=== PATIENT | female | born 1980 | race Caucasian/White ===

== ENCOUNTER → 2019-11-16 08:44 | Outpatient (CLI) | payer OTHER, SELFPAY ==
[2019-11-16 10:49] LABS: TSH w/ Reflex to FT4 3.06 uIU/mL (0.47-4.68)
[2019-11-16 13:05] LABS: Alanine Aminotransferase 13 IU/L (<35); Albumin 4.3 g/dL (3.5-5.0); Albumin Globulin Ratio 1.6 (1.0-2.8); Alkaline Phosphatase 57 U/L (38-126); Aspartate Aminotransferase 23 IU/L (14-36); BUN Creatinine Ratio 18.8 (6-22); Bilirubin Total 0.9 mg/dL (0.2-1.3); Blood Urea Nitrogen 13 mg/dL (7-17); Calcium 9.3 mg/dL (8.4-10.2); Carbon Dioxide 25 mmol/L (22-32); Chloride 106 mmol/L (98-107); Estimated Glomerular Filt Rate > 60.0 mL/min (>60); Globulin 2.7 g/dL (1.7-4.1); Glucose 92 mg/dL (70-100); HEMOLYSIS < 15 (0-50); Potassium 4.2 mmol/L (3.4-5.1); Sodium 137 mmol/L (137-145)
== END ==
PROVIDERS: PCP Registered Nurse; Referring Provider Registered Nurse; Visit Provider Registered Nurse
DX: E03.9 Hypothyroidism, unspecified (principal)
CPT/HCPCS: 36415; 80053; 84443

== ENCOUNTER → 2020-05-02 09:10 | Outpatient (CLI) | payer OTHER, SELFPAY ==
[2020-05-02 10:30] LABS: Add Manual Diff / Slide Review NO; Basophils Absolute Auto 0 /uL (0-100); Basophils Percent Auto 0.3 % (0-2); Eosinophils Absolute Auto 0 /uL (0-450); Eosinophils Percent Auto 0.7 % (2-4); Hematocrit 38.7 % (36-46); Lymphocytes Absolute Auto 2000 /uL (1100-4500); Lymphocytes Percent Auto 38.1 % (25-40); Mean Corpuscular HGB Conc 33.6 % (30-36); Mean Corpuscular Hemoglobin 30.8 PG (26-34); Mean Corpuscular Volume 91.8 fL (80-100); Monocytes Absolute Auto 500 /uL (0-900); Monocytes Percent Auto 9.1 % (3-14); Neutrophils Absolute Auto 2700 /uL (1500-7000); Neutrophils Percent Auto 51.8 % (50-75); Platelet Count 168 X10^3/uL (150-400); Red Blood Cell Count 4.21 X10^6/uL (4.0-5.2); Red Cell Distribution Width 12.9 % (11.6-14.8); White Blood Cell Count 5.2 X10^3/uL (4.5-11.0)
[2020-05-02 10:45] LABS: Cholesterol 158 mg/dL (140-199); HDL Cholesterol 67 mg/dL (40-60); LDL Cholesterol Calculated 80 mg/dL (<100); Triglycerides 55 mg/dL (35-150)
[2020-05-02 11:18] LABS: Free T4, Direct Thyroxine 1.37 ng/dL (0.78-2.19)
[2020-05-02 11:32] LABS: Thyroid Stimulating Hormone 3.14 uIU/mL (0.47-4.68)
== END ==
PROVIDERS: PCP Registered Nurse; Referring Provider Registered Nurse; Visit Provider Registered Nurse
DX: E03.9 Hypothyroidism, unspecified (principal); R53.83 Other fatigue; Z97.5 Presence of (intrauterine) contraceptive device; Z13.220 Encounter for screening for lipoid disorders
CPT/HCPCS: 36415; 80061; 84439; 84443; 85025

== ENCOUNTER → 2020-05-07 17:15 | Outpatient (CLI) | payer OTHER, SELFPAY ==
--- NOTE | 2020-05-07 | DI.MG.S_ITS ---
BILATERAL DIGITAL SCREENING MAMMOGRAM 3D/2D WITH CAD WITH AUGMENTATION: 05/07/2020 CLINICAL: Routine screening. No prior exams were available for comparison. The tissue of both breasts is extremely dense, which lowers the sensitivity of mammography. Current study was also evaluated with a Computer Aided Detection (CAD) system. There is an oval equal density focal asymmetry with an obscured and circumscribed margin in the left breast at 1 o'clock posterior depth. No other significant masses, calcifications, or other findings are seen in either breast. IMPRESSION: INCOMPLETE: NEEDS ADDITIONAL IMAGING EVALUATION The oval equal density focal asymmetry in the left breast is indeterminate. Mediolateral and spot compression views as well as additional views with possible ultrasound are recommended. This exam was interpreted at Station ID: [id number]. NOTE: For mammograms, a report in lay terms will be sent to the patient. Approximately 15% of breast malignancies will not be visualized mammographically. In the management of a palpable breast mass, a negative mammogram must not discourage biopsy of a clinically suspicious lesion. Electronically Signed By: Zac swain/rob:05/08/2020 07:50:19 letter sent: Additional Imaging Needed ACR BI-RADS Category 0: Incomplete 3340F
== END ==
PROVIDERS: PCP Registered Nurse; Referring Provider Registered Nurse; Visit Provider Registered Nurse
DX: Z12.31 Encounter for screening mammogram for malignant neoplasm of breast (principal)
CPT/HCPCS: 77063; 77067

== ENCOUNTER → 2020-05-09 13:42 | Outpatient (CLI) | payer OTHER, SELFPAY ==
[2020-05-09] MEDS: COVID-19 VACC #1, MRNA(MOD) 100 MCG/0.5 ML VIAL IM (13:47)
== END ==
PROVIDERS: PCP Registered Nurse; Visit Provider Internal Medicine
DX: Z23 Encounter for immunization (principal)
CPT/HCPCS: 0011A; 91301

== ENCOUNTER → 2020-05-30 14:53 | Outpatient (CLI) | payer OTHER, SELFPAY ==
--- NOTE | 2020-05-30 | DI.MG.S_ITS ---
UNILATERAL LEFT DIGITAL DIAGNOSTIC MAMMOGRAM 3D/2D WITH ADDITIONAL VIEWS: 05/30/2020 CLINICAL: Additional evaluation requested from prior study. Comparison is made to exam dated: 05/07/2020 mammogram - [facility]. The tissue of left breast is extremely dense, which lowers the sensitivity of mammography. There is a 1.5 cm oval equal density focal asymmetry with an obscured and circumscribed margin in the left breast at 1 o'clock posterior depth. This correlates as palpated. No other significant masses or calcifications are seen in the breast. Left breast implant. IMPRESSION: INCOMPLETE: NEEDS ADDITIONAL IMAGING EVALUATION Left breast: The 1.5 cm oval equal density focal asymmetry in the left breast is indeterminate. A targeted ultrasound is recommended and will immediately follow. Patient reports prior biopsy at this site in [place]. No records available. Right breast: A second palpable abnormality is reported in the right breast 7:00 region posterior depth. Spot mammography images could not be preformed of this region due to far posterior location and breast implant. Patient also reports pain in the right axilla. A targeted ultrasound is recommended and will immediately follow. This exam was interpreted at Station ID: [id number]. NOTE: For mammograms, a report in lay terms will be sent to the patient. Approximately 15% of breast malignancies will not be visualized mammographically. In the management of a palpable breast mass, a negative mammogram must not discourage biopsy of a clinically suspicious lesion. Electronically Signed By: Beau Carranza M.D. slc/:05/30/2020 17:15:23 ACR BI-RADS Category 0: Incomplete 3340F
--- NOTE | 2020-05-30 14:54 | DI.US.S_ITS ---
LIMITED ULTRASOUND OF LEFT BREAST AND AXILLA: 05/30/2020 CLINICAL: Additional evaluation requested from prior study. Abnormal left breast mammo done prior. Comparison is made to exams dated: 05/30/2020 mammogram and 05/07/2020 mammogram - [facility]. Color flow and real-time ultrasound of the left breast 1 o'clock, and axilla regions were performed. Mejia scale images of the real-time examination were reviewed. Left breast implant. There is a 1.8 cm x 1.6 cm x 1.4 cm oval mass with a circumscribed and microlobulated margin in the left breast at 1 o'clock posterior depth 6 cm from the nipple. This oval mass is hypoechoic with a well-defined boundary and posterior acoustic enhancement. This correlates as palpated and with mammography findings. Color flow imaging demonstrates that there is an adjacent vascularity. No significant abnormalities were seen sonographically in the left axilla. IMPRESSION: PROBABLY BENIGN The 1.8 cm oval mass in the left breast resembles a fibroadenoma and is probably benign. A follow-up ultrasound in 6 months is recommended to demonstrate stability. Exam findings were conveyed to the patient. Patient is advised to monitor for significant change. Clinical follow-up as needed. This exam was interpreted at Station ID: [id number]. Electronically Signed By: Beau Carranza M.D. [facility]:05/30/2020 17:19:18 letter sent: Followup Recommended Ultrasound BI-RADS: 3 Probably benign
--- NOTE | 2020-05-30 14:54 | DI.US.S_ITS ---
LIMITED ULTRASOUND OF RIGHT BREAST AND AXILLA: 05/30/2020 CLINICAL: Palpable right breast lump. [facility]time ultrasound of the right breast 7-8 o'clock, and axilla regions was performed. Mejia scale images of the real-time examination were reviewed. No significant abnormalities were seen sonographically in the right breast or the right axilla. Right breast implant. IMPRESSION: NEGATIVE There is no sonographic evidence of malignancy at the palpable abnormality or in the axilla in the region of pain. A 1 year screening mammogram is recommended. Exam findings were conveyed to the patient. Patient is advised to monitor for significant change. Clinical follow-up as needed. This exam was interpreted at Station ID: [id number]. Electronically Signed By: Beau Carranza M.D. slc/:05/30/2020 17:14:06 letter sent: Normal Exam Ultrasound BI-RADS: 1 Negative
== END ==
PROVIDERS: PCP Registered Nurse; Referring Provider Registered Nurse; Visit Provider Registered Nurse
DX: R92.2 Inconclusive mammogram (principal); N63.21 Unspecified lump in the left breast, upper outer quadrant; N63.31 Unspecified lump in axillary tail of the right breast; N64.4 Mastodynia; Z98.82 Breast implant status
CPT/HCPCS: 76642; 77065; G0279

== ENCOUNTER → 2020-06-06 14:27 | Outpatient (CLI) | payer OTHER, SELFPAY ==
[2020-06-06] MEDS: COVID-19 VACC #2, MRNA(MOD) 100 MCG/0.5 ML VIAL IM (14:33)
== END ==
PROVIDERS: PCP Registered Nurse; Visit Provider Internal Medicine
DX: Z23 Encounter for immunization (principal)
CPT/HCPCS: 0012A; 91301

== ENCOUNTER → 2021-01-01 13:30 | Outpatient (CLI) | payer OTHER, SELFPAY ==
--- NOTE | 2021-01-01 13:38 | DI.US.S_ITS ---
LIMITED ULTRASOUND OF LEFT BREAST: 01/01/2021 CLINICAL: 6 month follow up and palpable left breast lump. Comparison is made to exams dated: 05/30/2020 ultrasound, 05/30/2020 mammogram, and 05/07/2020 mammogram - [facility]. Color flow and real-time ultrasound of the left breast 12-1 o'clock region were performed. Mejia scale images of the real-time examination were reviewed. There is a benign 1.8 cm x 1.6 cm x 1.4 cm oval mass with a circumscribed and microlobulated margin in the left breast at 1 o'clock posterior depth 6 cm from the nipple. This oval mass is hypoechoic with a well-defined boundary and posterior acoustic enhancement. This correlates as palpated and with mammography findings. Color flow imaging demonstrates that there is an adjacent vascularity. IMPRESSION: BENIGN There is no sonographic evidence of malignancy. The 1.8 cm x 1.6 cm x 1.4 cm oval mass in the left breast resembles a fibroadenoma and is benign. Return to annual mammogram screening schedule is recommended. This exam was interpreted at Station ID: [id number]. Electronically Signed By: Tod Hobbs M.D., jr/rob:01/01/2021 15:25:48 letter sent: Normal Exam Ultrasound BI-RADS: 2 Benign
== END ==
PROVIDERS: PCP Registered Nurse; Referring Provider Registered Nurse; Visit Provider Registered Nurse
DX: N63.20 Unspecified lump in the left breast, unspecified quadrant (principal)
CPT/HCPCS: 76642

== ENCOUNTER → 2021-02-18 10:04 | Outpatient (CLI) | payer OTHER, SELFPAY | PROVIDERS: PCP Family Medicine; Visit Provider Obstetrics & Gynecology | DX: R31.9 Hematuria, unspecified (principal) | CPT/HCPCS: 87077; 87086; 87186 ==

== ENCOUNTER → 2021-04-24 09:11 | Outpatient (CLI) | payer OTHER, SELFPAY ==
[2021-04-24 10:39] LABS: Alanine Aminotransferase 20 IU/L (<35); Albumin 4.6 g/dL (3.5-5.0); Albumin Globulin Ratio 1.5 (1.0-2.8); Alkaline Phosphatase 57 U/L (38-126); Aspartate Aminotransferase 26 IU/L (14-36); BUN Creatinine Ratio 21.5 (6-22); Bilirubin Total 1.1 mg/dL (0.2-1.3); Blood Urea Nitrogen 14 mg/dL (7-17); Calcium 9.5 mg/dL (8.4-10.2); Carbon Dioxide 25 mmol/L (22-32); Chloride 106 mmol/L (98-107); Cholesterol 174 mg/dL (140-199); Estimated Glomerular Filt Rate > 60.0 mL/min (>60); Globulin 3.1 g/dL (1.7-4.1); Glucose 91 mg/dL (70-100); HDL Cholesterol 71 mg/dL (40-60); HEMOLYSIS < 15 (0-50); LDL Cholesterol Calculated 93 mg/dL (<100); Sodium 140 mmol/L (137-145); Total Protein 7.7 g/dL (6.3-8.2); Triglycerides 50 mg/dL (35-150)
[2021-04-24 10:45] LABS: Hemoglobin A1C% w Est Avg Glu 5.3 % (4.0-6.0)
[2021-04-24 11:10] LABS: TSH w/ Reflex to FT4 2.28 uIU/mL (0.47-4.68)
== END ==
PROVIDERS: PCP Family Medicine; Referring Provider Family Medicine; Visit Provider Family Medicine
DX: D24.2 Benign neoplasm of left breast (principal); E03.9 Hypothyroidism, unspecified; R73.9 Hyperglycemia, unspecified; R92.2 Inconclusive mammogram; Z98.82 Breast implant status
CPT/HCPCS: 36415; 80053; 80061; 83036; 84443

== ENCOUNTER → 2021-05-11 12:40 | Outpatient (CLI) | payer OTHER, SELFPAY ==
--- NOTE | 2021-05-11 12:41 | DI.MRI.S_ITS ---
BREAST MRI OF BOTH BREASTS- WITH AUGMENTATION: 05/11/2021 CLINICAL: Inconclusive Mammogram. TECHNIQUE: The patient was placed prone in a dedicated breast imaging coil. Precontrast axial STIR and 3D FLASH without fat saturation sequences were obtained. Both before and after bolus injection of contrast, sequential 1-minute axial 3D FLASH with fat saturation sequences for 3 time points, with subtraction images and maximum intensity projections (MIP's) generated. Delayed sagittal FLASH images with fat saturation were also obtained. Computer-aided detection, including computer algorithm analysis of MRI image data for lesion detection and characterization, pharmacokinetic analysis, with further physician review for interpretation, was performed. COMPARISON: [facility], , MM SCREENING MAMMO IMPLANT BI, 05/07/2020, 18:02. [facility], MM SPECIAL VIEW LT, 05/30/2020, 15:15. [facility], , US BREAST LT LIMITED, 05/30/2020, 16:04. [facility], US BREAST LT LIMITED, 01/01/2021, 14:21. [facility], US BREAST RT LIMITED, 05/30/2020, 16:11. Image quality: Diagnostic. There is moderate background parenchymal enhancement. There is extremely dense fibroglandular tissue in the bilateral breast. Right breast: Retroglandular silicone breast implant is in place. Implant appears intact. There is a solitary dilated duct in the subareolar right breast containing intrinsic T1 hyperintensity material prior to contrast administration. This is consistent with hemorrhagic/proteinaceous material. There is however, minimal enhancement involving the joseph of the duct noted on the postcontrast images. No definite intraluminal enhancing mass lesions. Otherwise, no other suspicious mass, non-mass enhancement, or architectural distortion. No skin abnormality seen. No axillary or internal mammary chain adenopathy. Left breast: Retroglandular silicone breast implant is in place. Implant appears intact. There is an oval enhancing mass identified in the upper outer quadrant of the left breast at approximately the 1 o'clock position posterior depth measuring approximately 1.7 x 1.5 x 1.3 cm. This closely approximates sonographic measurements of 1.8 x 1.6 x 1.4 cm. This demonstrates delayed phase progressive enhancement kinetics. This mass is T2 hyperintense. No other suspicious mass, non-mass enhancement, or architectural distortion identified in the left breast. No skin or nipple abnormalities. No axillary or internal mammary chain adenopathy. Miscellaneous: Visualized portions of the upper abdomen and chest appear unremarkable. IMPRESSION: INCOMPLETE: NEEDS ADDITIONAL IMAGING EVALUATION 1. Redemonstration of previously described oval, circumscribed mass in the upper, outer quadrant of the left breast measuring 1.7 x 1.5 x 1.3 cm. It demonstrates MRI findings compatible with a fibroadenoma. This closely approximates size and appearance seen on comparison sonographic evaluation. Consider follow up ultrasound in one year to document extermination inspector stability given patient's elevated lifetime risk for breast cancer. 2. There is a solitary dilated/ectatic duct measuring approximately 4-5 mm in diameter in the subareolar right breast with mild enhancement of the ductal wall. No evidence for intraluminal filling defects or intraluminal enhancing masses. No adjacent enhancing mass lesion seen. Recommend further evaluation with right breast ultrasound. Additionally, recommend correlating with any clinical history for suspicious right nipple discharge. 3. Patient is also due for bilateral mammograms which can be performed when she returns for her right breast ultrasound. COMMENT: The imaging literature indicates that a negative contrast breast MRI examination has a high sensitivity and a moderate specificity for detecting and excluding invasive carcinomas to a detection threshold of 3-5 mm; nonetheless, appropriate clinical and mammographic follow-up are recommended. MRI is not sensitive for detecting DCIS (ductal carcinoma in situ) and may not detect large invasive neoplasms that show only minimal enhancement such as mucinous carcinoma. If there are suspicious calcifications or clinically worrisome palpable masses, then biopsy should still be considered. Invasive neoplasms can be hidden by co-existent and benign enhancement caused by mastitis, hormone therapy effects, radiation therapy, , and recent biopsy or surgery. False positive examinations can occur in a number of circumstances, including breasts that have recently been subject to invasive procedures and those that contain atypical ductal hyperplasia, hormonally stimulated glandular tissue, fat necrosis, or radial scars. This exam was interpreted at Station ID: [id number]. Electronically Signed By: Erlin Kulkarni M.D. aty/:05/13/2021 18:04:26 ACR BI-RADS Category 0: Incomplete 3340F
== END ==
PROVIDERS: PCP Family Medicine; Referring Provider Family Medicine; Visit Provider Family Medicine
DX: R92.8 Other abnormal and inconclusive findings on diagnostic imaging of breast (principal); D24.2 Benign neoplasm of left breast; N60.41 Mammary duct ectasia of right breast; Z98.82 Breast implant status
CPT/HCPCS: 77049; A9579

== ENCOUNTER → 2021-07-02 13:29 | Outpatient (CLI) | payer OTHER, SELFPAY ==
--- NOTE | 2021-07-02 | DI.MG.S_ITS ---
BILATERAL DIGITAL DIAGNOSTIC MAMMOGRAM 3D/2D SHORT-TERM FOLLOW-UP WITH AUGMENTATION: 07/02/2021 CLINICAL: Short term follow up of the right breast, due for bilateral imaging. Comparison is made to exams dated: 05/11/2021 breast MRI, 05/30/2020 mammogram, 05/07/2020 mammogram, 01/01/2021 ultrasound, 05/30/2020 ultrasound, and 05/30/2020 ultrasound - [facility]. The tissue of both breasts is extremely dense, which lowers the sensitivity of mammography. There are multiple dilated ducts in the right breast central to the nipple in the retroareolar region. These correlate with breast MRI findings. There is a 1.5 cm oval equal density focal asymmetry with an obscured and circumscribed margin in the left breast at 1 o'clock posterior depth. This correlates as palpated and with breast MRI findings. No other significant masses or calcifications are seen in either breast. IMPRESSION: INCOMPLETE: NEEDS ADDITIONAL IMAGING EVALUATION The multiple dilated ducts in the right breast central to the nipple in the retroareolar region are indeterminate. An ultrasound is recommended. The 1.5 cm oval equal density focal asymmetry in the left breast at 1 o'clock posterior depth most likely is a fibroadenoma and is probably benign. This exam was interpreted at Station ID: [id number]. NOTE: For mammograms, a report in lay terms will be sent to the patient. Approximately 15% of breast malignancies will not be visualized mammographically. In the management of a palpable breast mass, a negative mammogram must not discourage biopsy of a clinically suspicious lesion. Electronically Signed By: Eh berry/rob:07/02/2021 15:04:39 ACR BI-RADS Category 0: Incomplete 3340F
--- NOTE | 2021-07-02 14:14 | DI.US.S_ITS ---
LIMITED ULTRASOUND OF RIGHT BREAST: 07/02/2021 CLINICAL: Patient returns for sonographic evaluation of right retroareolar area seen on MRI. Comparison is made to exams dated: 07/02/2021 mammogram, 05/11/2021 breast MRI, 05/30/2020 ultrasound, 05/07/2020 mammogram, 01/01/2021 ultrasound, and 05/30/2020 mammogram - [facility]. Color flow ultrasound of the right breast 11-12 o'clock, and retroareolar regions was performed. Mejia scale images of the real-time examination were reviewed. There are multiple dilated ducts in the right breast superior lateral quadrant in the retroareolar region. These dilated ducts are of mixed echogenicity with internal echoes. These correlate with mammography and breast MRI findings. Calcifications are seen within the duct with associated twinkle artifact on color Doppler. No internal vascularity is seen within the ducts. There appears to be mild wall thickening without a focal mass visualized. IMPRESSION: PROBABLY BENIGN The multiple dilated ducts in the right breast have a differential diagnosis of duct ectasia with debris or less likely papilloma and are probably benign. A follow-up right ultrasound in 6 months is recommended to demonstrate stability. Follow-up left breast ultrasound is also recommended in one year for follow up of the probable left breast fibroadenoma as recommended on the MRI breast exam from 05/11/2021. This exam was interpreted at Station ID: [id number]. Electronically Signed By: Eh Bar M.D. ar/:07/02/2021 15:15:29 letter sent: Followup Recommended Ultrasound BI-RADS: 3 Probably benign
== END ==
PROVIDERS: PCP Family Medicine; Referring Provider Family Medicine; Visit Provider Family Medicine
DX: R92.8 Other abnormal and inconclusive findings on diagnostic imaging of breast (principal); D24.2 Benign neoplasm of left breast
CPT/HCPCS: 76642; 77066; G0279

== ENCOUNTER → 2021-07-15 09:41 | Outpatient (CLI) | payer OTHER, SELFPAY ==
--- NOTE | 2021-07-15 09:43 | DI.US.S_ITS ---
LIMITED ULTRASOUND OF LEFT BREAST AND AXILLA: 07/15/2021 CLINICAL: Follow up left fibroadenoma. Comparison is made to exams dated: 07/02/2021 mammogram, 05/11/2021 breast MRI, 01/01/2021 ultrasound, 05/30/2020 ultrasound, 05/30/2020 mammogram, and 05/07/2020 mammogram - [facility]. Color flow and real-time ultrasound of the left breast axilla were performed. Mejia scale images of the real-time examination were reviewed. There is a stable 1.8 cm x 1.7 cm x 1.2 cm oval mass with a circumscribed margin in the left breast at 1 o'clock posterior depth 6 cm from the nipple. This oval mass is hypoechoic with a well-defined boundary and posterior acoustic enhancement. This correlates as palpated, with mammography, and breast MRI findings. Color flow imaging demonstrates that there is an adjacent vascularity. There also is a stable 1.3 cm x 1.1 cm x 0.3 cm oval mass with a circumscribed margin in the left breast at 5 o'clock middle depth 3 cm from the nipple. This oval mass is hypoechoic. This was not seen on the prior mammogram and MRI. Color flow imaging demonstrates that there is no vascularity present. No significant abnormalities were seen sonographically in the left axilla. IMPRESSION: PROBABLY BENIGN Stable 1.8 cm x 1.7 cm x 1.2 cm oval mass in the left breast at 1 o'clock posterior depth is most consistent with a fibroadenoma and is probably benign. Stable 1.3 cm x 1.1 cm x 0.3 cm oval mass in the left breast at 5 o'clock middle depth resembles a fibroadenoma and is probably benign. A follow-up ultrasound in 6 months is recommended to demonstrate stability. Patient will also be due for right breast ultrasound at that time. Exam findings were conveyed to the patient. Patient is advised to monitor for significant change. Clinical follow-up as needed. This exam was interpreted at Station ID: [id number]. Electronically Signed By: Beau Carranza M.D. slc/:07/15/2021 11:35:06 letter sent: Followup Recommended Ultrasound BI-RADS: 3 Probably benign
== END ==
PROVIDERS: PCP Family Medicine; Referring Provider Surgery; Visit Provider Surgery
DX: R92.2 Inconclusive mammogram (principal); N63.23 Unspecified lump in the left breast, lower outer quadrant; N63.21 Unspecified lump in the left breast, upper outer quadrant
CPT/HCPCS: 76642

== ENCOUNTER → 2021-08-11 14:25 | Outpatient (CLI) | payer OTHER, SELFPAY ==
--- NOTE | 2021-08-11 14:27 | DI.CT.S_ITS ---
PROCEDURE: CT SINUS SCREEN WO CON INDICATIONS: Chronic pansinusitis TECHNIQUE: Noncontrast 3.0 mm axial images acquired from the frontal sinuses to the mid-sella, with coronal and sagittal reformats. For radiation dose reduction, the following was used: automated exposure control, adjustment of mA and/or kV according to patient size. COMPARISON: None. FINDINGS: Image quality: Excellent. Maxillary Sinuses: No bony remodeling or destruction. Sinuses are clear. Ethmoid Air Cells: No bony remodeling or destruction. Sinuses are clear. Sphenoid Sinuses: No bony remodeling or destruction. Sinuses are clear. Frontal Sinuses: No bony remodeling or destruction. Sinuses are clear. Ostiomeatal Complexes: Ostiomeatal complexes are patent, yet they are constitutionally narrowed. No Brady cells. Miscellaneous: Visualized intra-orbital contents are normal. No hitesh bullosa or paradoxical turbinate curvature. There is mild to moderate rightward nasal septal deviation. Incidental note is made of hyperostosis frontalis. This is not considered to be pathologic in a woman of this age. Areas of calcification can be seen involving the subcutaneous fat of the cheeks. IMPRESSION: No significant active paranasal sinus disease is seen. [id number] rightward nasal septal deviation. Constitutionally narrowed ostiomeatal complexes. Dictated by: Mamadou Srivastava M.D. on 08/11/2021 at 13:42 Approved by: Mamadou Srivastava M.D. on 08/11/2021 at 13:43
== END ==
PROVIDERS: PCP Family Medicine; Referring Provider Otolaryngology; Visit Provider Otolaryngology
DX: J32.4 Chronic pansinusitis (principal); J34.89 Other specified disorders of nose and nasal sinuses; R51.9 Headache, unspecified; J34.2 Deviated nasal septum
CPT/HCPCS: 70486

== ENCOUNTER → 2021-12-24 09:34 | Outpatient (CLI) | payer OTHER, SELFPAY ==
--- NOTE | 2021-12-24 09:35 | DI.US.S_ITS ---
ULTRASOUND OF LEFT BREAST: 12/24/2021 CLINICAL: Patient returns for a 6 month follow up of the left breast. Comparison is made to exams dated: 07/15/2021 ultrasound, 07/02/2021 mammogram, 05/11/2021 breast MRI, 01/01/2021 ultrasound, 05/30/2020 ultrasound, and 05/30/2020 mammogram - [facility]. Color flow and real-time ultrasound of the left breast were performed. Mejia scale images of the real-time examination were reviewed. There is a stable 1.9 cm x 1.2 cm x 2.1 cm oval mass with a circumscribed margin in the left breast at 1 o'clock posterior depth 6 cm from the nipple. This oval mass is hypoechoic with a well-defined boundary and posterior acoustic enhancement. There also is a stable 1.3 cm x 1.1 cm x 0.3 cm oval mass with a circumscribed margin in the left breast at 5 o'clock middle depth 3 cm from the nipple. This oval mass is hypoechoic. IMPRESSION: PROBABLY BENIGN The stable 1.9 cm x 1.2 cm x 2.1 cm oval mass in the left breast at 1 o'clock posterior depth is consistent with a fibroadenoma and is probably benign. A follow-up ultrasound in 6 months is recommended. The stable 1.3 cm x 1.1 cm x 0.3 cm oval mass in the left breast at 5 o'clock middle depth resembles a fibroadenoma and is probably benign. A follow-up ultrasound in 6 months is recommended. The patient stated, through the motorsports technician that the larger fibroadenoma in the 12:00 position fibroadenoma will be removed by a surgeon. This exam was interpreted at Station ID: [id number]. Electronically Signed By: Gil Interiano acr/:12/24/2021 11:42:01 letter sent: Followup Recommended Ultrasound BI-RADS: 3 Probably benign
--- NOTE | 2021-12-24 09:35 | DI.US.S_ITS ---
PROCEDURE: US BREAST RT LIMITED COMPARISON: [facility], , US BREAST RT LIMITED, 07/02/2021, 14:20. INDICATIONS: The multiple dilated ducts in the right breast FINDINGS: IMPRESSION: . Echoes. There is no change compared to prior. The patient stated, through the ct scan special procedures technologist, that she will be seeing a surgery to have this area removed. Dictated by: Gil Interiano M.D. on 12/24/2021 at 10:57 Approved by: Gil Interiano M.D. on 12/24/2021 at 11:38
--- NOTE | 2021-12-24 10:13 | DI.US.S_ITS ---
Procedure: US breast RT limited ULTRASOUND OF RIGHT BREAST: 12/24/2021 CLINICAL: Patient returns for a 6 month follow up of the right breast. Comparison is made to exams dated: 07/02/2021 ultrasound, 07/02/2021 mammogram, 05/11/2021 breast MRI, 05/30/2020 ultrasound, and 05/07/2020 mammogram - [facility]. Color flow ultrasound of the right breast was performed. Mejia scale images of the real-time examination were reviewed. There are multiple dilated ducts in the right breast superior lateral quadrant in the retroareolar region. These dilated ducts are of mixed echogenicity with internal echoes. There is no change compared to prior. Internal vascularity is seen within the ducts. There appears to be mild wall thickening without a focal mass visualized. IMPRESSION: PROBABLY BENIGN The multiple dilated ducts in the right breast have a differential diagnosis of duct ectasia, debris, or a papilloma and are probably benign. A follow-up ultrasound in 6 months is recommended. The patient stated, through the testing and regulating technician, that she will be seeing a surgery to have this area removed. This exam was interpreted at Station ID: [id number]. Electronically Signed By: Gil Interiano acr/:12/24/2021 11:37:43 Entry: aa - 12/24/2021 14:20:40 Continued Report - Page 2 of 2 Patient Name: RM AN date: 1980 Sex: F Attending Physician: Zaire Indications: Date: 12/24/2021 10:24 At the request of: ARNULFO LOPEZ Procedure: US breast RT limited Ultrasound BI-RADS: 3 Probably benign
== END ==
PROVIDERS: PCP Family Medicine; Referring Provider Surgery; Visit Provider Surgery
DX: D24.2 Benign neoplasm of left breast (principal); R92.2 Inconclusive mammogram
CPT/HCPCS: 76642

== ENCOUNTER → 2022-05-06 09:11 | Outpatient (CLI) | payer OTHER, SELFPAY ==
--- NOTE | 2022-05-06 09:13 | DI.US.S_ITS ---
PROCEDURE: US PELVIC COMPLETE INDICATIONS: PELVIC PAIN TECHNIQUE: Real-time scanning was performed of the pelvic organs, with image documentation. Additional endovaginal scanning was necessary due to incomplete visualization of the adnexal and endometrial structures by transabdominal scanning. COMPARISON: [facility], US, US ABDOMEN COMPLETE, 05/06/2022, 10:14. FINDINGS: Uterus: Uterus is anteverted and normal in size at 8.9 x 5 x 6.1 cm. The myometrium is homogeneous. The endometrial stripe does not appear thickened. The IUD is seen at its expected location. Fluid can be seen within the cervix. Ovaries: The right ovary measures 5.9 x 3.7 x 5.7 cm, with a calculated ovarian volume of 65 cc. The majority of the right ovary is comprised with a complicated cyst, with a heterogeneous appearance, with an area of a chocolate cyst. The left ovary measures 2.3 x 2.1 x 2.2 cm, with a calculated ovarian volume of 5.5 cc. Less than 12 follicles can be seen in each ovary. No adnexal masses are seen. Other: A small amount of free fluid can be seen adjacent to the right ovary. IMPRESSION: Abnormal right ovary, which may be related to a hemorrhagic cyst or endometrioma. - If it would be clinically appropriate, a followup pelvic ultrasound could be considered in 6 weeks to assure resolution/ improvement. The IUD is seen at its expected location. We strive to produce accurate, complete, and clear reports of imaging services. To assist us in improving patient care, this report was composed using standard report templates and voice recognition software. Therefore, it may contain abnormal punctuation, insertions and/or omissions. Occasional wrong-word or sound-alike substitutions may occur. Though we review the report and make efforts to correct it, we do recommend that the report be read carefully in proper context to recognize any text inaccuracies. Dictated by: Mamadou Srivastava M.D. on 05/06/2022 at 16:31 Approved by: Mamadou Srivastava M.D. on 05/06/2022 at 16:33
--- NOTE | 2022-05-06 09:13 | DI.US.S_ITS ---
PROCEDURE: US ABDOMEN COMPLETE INDICATIONS: RUQ pain and pelvic pain TECHNIQUE: Real-time scanning was performed of the abdominal and retroperitoneal organs, with image documentation. COMPARISON: [facility], US, US PELVIC COMPLETE, 05/06/2022, 10:31. FINDINGS: Liver: Liver is normal in size and homogeneous in echotexture. Gallbladder: No findings of gallstones or sludge are seen. The gallbladder wall is not thickened, measuring 3 mm or less. No specific pericholecystic fluid is seen. The sonographic Hancock sign is negative. Biliary ducts: Intrahepatic bile ducts are non-dilated. Extrahepatic bile duct caliber measures 3 mm. Normal is 6-7 mm or less in diameter, or 10 mm or less post-cholecystectomy. Pancreas: Visualized portions of the pancreas are sonographically normal. Spleen: Spleen is normal in size and homogeneous in echotexture. Kidneys: Kidneys are normal in size and echotexture. Right kidney measures 10.6 cm long; left kidney measures 10.4 cm long. The renal cortex measures within normal limits for thickness. No hydronephrosis or nephrolithiasis. No solid masses. Aorta: Visualized aorta is normal in caliber at less than 3 cm. Iliacs: Proximal common iliac arteries are normal in caliber at less than 2.5 cm. IVC: Intrahepatic inferior vena cava is patent. Miscellaneous: No free abdominal fluid. IMPRESSION: The gallbladder demonstrates a normal sonographic appearance. No biliary dilatation is seen. Dictated by: Mamadou Srivastava M.D. on 05/06/2022 at 16:28 Approved by: Mamadou Srivastava M.D. on 05/06/2022 at 16:29
[2022-05-06 09:56] LABS: Add Manual Diff / Slide Review NO; Basophils Absolute Auto 0 /uL (0-100); Basophils Percent Auto 0.5 % (0-2); Eosinophils Absolute Auto 100 /uL (0-450); Eosinophils Percent Auto 1.1 % (2-4); Hemoglobin 12.8 g/dL (12.0-16.0); Lymphocytes Absolute Auto 1600 /uL (1100-4500); Lymphocytes Percent Auto 31.3 % (25-40); Mean Corpuscular HGB Conc 33.8 % (30-36); Mean Corpuscular Volume 91.7 fL (80-100); Monocytes Absolute Auto 500 /uL (0-900); Monocytes Percent Auto 9.2 % (3-14); Neutrophils Absolute Auto 2900 /uL (1500-7000); Neutrophils Percent Auto 57.9 % (50-75); Platelet Count 169 X10^3/uL (150-400); Red Blood Cell Count 4.14 X10^6/uL (4.0-5.2); Red Cell Distribution Width 13.4 % (11.6-14.8); White Blood Cell Count 5.1 X10^3/uL (4.5-11.0)
[2022-05-06 10:24] LABS: Alanine Aminotransferase 18 IU/L (<35); Alkaline Phosphatase 54 U/L (38-126); Aspartate Aminotransferase 25 IU/L (14-36); BUN Creatinine Ratio 16.9 (6-22); Bilirubin Total 0.8 mg/dL (0.2-1.3); Blood Urea Nitrogen 10 mg/dL (7-17); Calcium 8.9 mg/dL (8.4-10.2); Carbon Dioxide 24 mmol/L (22-32); Chloride 105 mmol/L (98-107); Cholesterol 157 mg/dL (140-199); Estimated Glomerular Filt Rate > 60 mL/min (>60); Glucose 86 mg/dL (70-100); HDL Cholesterol 59 mg/dL (40-60); HEMOLYSIS < 15 (0-50); LDL Cholesterol Calculated 88 mg/dL (<100); Sodium 139 mmol/L (137-145); Total Protein 7.5 g/dL (6.3-8.2); Triglycerides 49 mg/dL (35-150)
[2022-05-06 10:54] LABS: TSH w/ Reflex to FT4 1.73 uIU/mL (0.47-4.68)
[2022-05-06 13:33] LABS: Appearance Urine UA CLEAR; Bilirubin Urine UA NEGATIVE (NEGATIVE); Color Urine UA YELLOW; Glucose Urine UA NEGATIVE (Negative); Ketones Urine UA NEGATIVE (NEGATIVE); Leukocyte Esterase Urine UA TRACE (NEGATIVE); Nitrite Urine UA NEGATIVE (Negative); Occult Blood Urine UA 2+ (Negative); Protein Urine UA NEGATIVE (Negative); Specific Gravity Urine UA <=1.005 (1.000-1.035); Urobilinogen Urine UA 0.2 E.U./dL (0.2)
[2022-05-06 13:40] LABS: pH Urine UA 5.5 (4.5-8.0)
[2022-05-06 14:02] LABS: Bacteria Urine Moderate (10-30); Culture Indicated Urine Specimen Cultured; RBC Urine 5-10/HPF (0-5/HPF); Squamous Epithelial Cell Urine 0-1 /HPF (0-5/HPF); WBC Urine 5-10/HPF (0-5/HPF)
[2022-05-07 17:03] LABS: Albumin 4.3 g/dL (3.5-5.0); Albumin Globulin Ratio 1.3 (1.0-2.8); Globulin 3.2 g/dL (1.7-4.1)
== END ==
PROVIDERS: PCP Family Medicine; Referring Provider Family Medicine; Visit Provider Family Medicine
DX: E03.9 Hypothyroidism, unspecified (principal); N83.291 Other ovarian cyst, right side; R10.2 Pelvic and perineal pain; R10.11 Right upper quadrant pain; R73.9 Hyperglycemia, unspecified; Z97.5 Presence of (intrauterine) contraceptive device
CPT/HCPCS: 36415; 76700; 76856; 80053; 80061; 81001; 84443; 85025; 87086

== ENCOUNTER → 2022-06-16 09:06 | Outpatient (CLI) | payer OTHER, SELFPAY ==
--- NOTE | 2022-06-16 09:07 | DI.US.S_ITS ---
PROCEDURE: US PELVIC COMPLETE INDICATIONS: FOLLOW-UP RIGHT OVARIAN CYST TECHNIQUE: Real-time scanning was performed of the pelvic organs, with image documentation. Additional endovaginal scanning was necessary due to incomplete visualization of the adnexal and endometrial structures by transabdominal scanning. COMPARISON: [facility], US, US PELVIC COMPLETE, 05/06/2022, 10:31. FINDINGS: Uterus: Uterus is anteverted and normal in size at 11.1 x 4.5 x 6.4 cm. The myometrium is homogeneous. The endometrium measures 4.4 mm combined thickness. Intrauterine device is in place Ovaries: The right ovary measures 3.7 x 2.9 x 1.9 cm, with a calculated ovarian volume of 10.3 cc. The left ovary measures 1.9 x 1.9 x 1.6 cm, with a calculated ovarian volume of 3.1 cc. The ovaries have a normal sonographic appearance. Less than 12 follicles can be seen in each ovary. No adnexal masses are seen. Complex right ovarian cyst measuring 19 mm. Other: No pathologic free abdominal or pelvic fluid. IMPRESSION: Negative examination. Resolution of previously seen right ovarian cyst. Intrauterine device is in place. We strive to produce accurate, complete, and clear reports of imaging services. To assist us in improving patient care, this report was composed using standard report templates and voice recognition software. Therefore, it may contain abnormal punctuation, insertions and/or omissions. Occasional wrong-word or sound-alike substitutions may occur. Though we review the report and make efforts to correct it, we do recommend that the report be read carefully in proper context to recognize any text inaccuracies. Dictated by: José Miguel Nixon M.D. on 06/16/2022 at 10:54 Transcribed by: GIA on 06/16/2022 at 11:02 Approved by: José Miguel Nixon M.D. on 06/16/2022 at 16:05
== END ==
PROVIDERS: PCP Family Medicine; Referring Provider Family Medicine; Visit Provider Family Medicine
DX: N83.201 Unspecified ovarian cyst, right side (principal); Z97.5 Presence of (intrauterine) contraceptive device
CPT/HCPCS: 76830; 76856

== ENCOUNTER → 2022-06-17 10:19 | Outpatient (CLI) | payer OTHER, SELFPAY ==
--- NOTE | 2022-06-17 | DI.MG.S_ITS ---
BILATERAL DIGITAL DIAGNOSTIC MAMMOGRAM 3D/2D WITH AUGMENTATION: 06/17/2022 CLINICAL: Short term follow up for bilateral breasts. Comparison is made to exams dated: 12/24/2021 ultrasound, 12/24/2021 ultrasound, 07/15/2021 ultrasound, 07/02/2021 ultrasound, 07/02/2021 mammogram, and 05/11/2021 breast MRI - [facility]. Both breasts are extremely dense, which lowers the sensitivity of mammography (category d />75% glandular tissue). There are multiple stable dilated ducts in the right breast central to the nipple in the retroareolar region. These correlate with breast MRI findings. There is a stable 1.5 cm oval equal density focal asymmetry with an obscured and circumscribed margin in the left breast at 1 o'clock posterior depth. This correlates as palpated and with breast MRI findings. No other significant masses or calcifications are seen in either breast. IMPRESSION: INCOMPLETE: NEEDS ADDITIONAL IMAGING EVALUATION The multiple dilated ducts in the right breast central to the nipple in the retroareolar region are mammographically stable. Ultrasound scheduled to follow in order to demonstrate sonographic stability. The stable 1.5 cm oval equal density focal asymmetry in the left breast at 1 o'clock posterior depth most likely is a fibroadenoma, however ultrasound is recommended for continued surveillance and has been scheduled to follow. Future imaging is recommended as follows: 06/23/2022 ultrasound. Based on Tyrer-Cuzick model (a risk assessment model), the patient's lifetime risk is 58.5% and her 10 year risk is 13.6%. If a patient has an elevated risk, a more comprehensive evaluation should be considered and/or a referral to a genetic counselor. The [place] [employer], [employer], and NCCN Guidelines advise the consideration of Breast MRI as an adjunct to screening mammography in patients whose Lifetime risk to develop breast cancer is 20% or higher. This exam was interpreted at Station ID: [id number]. NOTE: For mammograms, a report in lay terms will be sent to the patient. Approximately 15% of breast malignancies will not be visualized mammographically. In the management of a palpable breast mass, a negative mammogram must not discourage biopsy of a clinically suspicious lesion. Electronically Signed By: Tod Hobbs M.D. jr/:06/17/2022 15:28:17 ACR BI-RADS Category 0: Incomplete 3340F
--- NOTE | 2022-06-17 10:20 | DI.US.S_ITS ---
LIMITED ULTRASOUND OF RIGHT BREAST: 06/17/2022 CLINICAL: 6 Month follow up. Comparison is made to exams dated: 06/17/2022 mammogram, 12/24/2021 ultrasound, 07/02/2021 ultrasound, 07/02/2021 mammogram, 05/11/2021 breast MRI, and 05/30/2020 ultrasound - . Color flow and real-time ultrasound of the right breast retroareolar were performed. Mejia scale images of the real-time examination were reviewed. There are multiple stable benign dilated ducts in the right breast superior lateral quadrant in the retroareolar region. These dilated ducts are of mixed echogenicity with internal echoes. These correlate with mammography and breast MRI findings. Calcifications are seen within the duct with associated twinkle artifact on color Doppler. No internal vascularity is seen within the ducts. There appears to be mild wall thickening without a focal mass visualized. IMPRESSION: BENIGN There is no sonographic evidence of malignancy. Multiple dilated ducts in the right breast are consistent with duct ectasia and are stable, considered benign. Return to annual mammogram and a breast MRI screening schedule is recommended. This exam was interpreted at Station ID: [id number]. Electronically Signed By: Tod Hobbs M.D. jr/:06/18/2022 11:19:23 letter sent: Normal Exam Ultrasound BI-RADS: 2 Benign
--- NOTE | 2022-06-17 10:20 | DI.US.S_ITS ---
LIMITED ULTRASOUND OF LEFT BREAST: 06/17/2022 CLINICAL: 6 Month follow up. Comparison is made to exams dated: 06/17/2022 mammogram, 12/24/2021 ultrasound, 07/15/2021 ultrasound, 07/02/2021 mammogram, 05/11/2021 breast MRI, and 01/01/2021 ultrasound - [facility]. Color flow and real-time ultrasound of the left breast 1 o'clock and 5 o'clock regions were performed. Mejia scale images of the real-time examination were reviewed. There is a stable benign 1.9 cm x 1.2 cm x 2.1 cm oval mass with a circumscribed margin in the left breast at 1 o'clock posterior depth 6 cm from the nipple. This oval mass is hypoechoic with a well-defined boundary and posterior acoustic enhancement. This correlates as palpated, with mammography, and breast MRI findings. Color flow imaging demonstrates that there is an adjacent vascularity. There also is a stable benign 1.3 cm x 1.1 cm x 0.3 cm oval mass with a circumscribed margin in the left breast at 5 o'clock middle depth 3 cm from the nipple. This oval mass is hypoechoic. This was not seen on the prior mammogram and MRI. Color flow imaging demonstrates that there is no vascularity present. IMPRESSION: BENIGN There is no sonographic evidence of malignancy. 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 The stable 1.3 cm x 1.1 cm x 0.3 cm oval mass in the left breast at 5 o'clock middle depth resembles a fibroadenoma and is benign. A 1 year screening mammogram is recommended in additon to annual breast MRI (due to markedly elevated lifetime risk of breast cancer according to the Tyrer-Cuzick model.) This exam was interpreted at Station ID: [id number]. Electronically Signed By: Tod Hobbs M.D. jr/:06/18/2022 11:17:59 letter sent: Normal Exam Ultrasound BI-RADS: 2 Benign
== END ==
PROVIDERS: PCP Family Medicine; Referring Provider Family Medicine; Visit Provider Family Medicine
DX: R92.8 Other abnormal and inconclusive findings on diagnostic imaging of breast (principal); N64.52 Nipple discharge; D24.2 Benign neoplasm of left breast; R92.2 Inconclusive mammogram; N60.41 Mammary duct ectasia of right breast
CPT/HCPCS: 76642; 77066; G0279

== ENCOUNTER → 2023-02-09 16:22 | Outpatient (CLI) | payer OTHER, SELFPAY | PROVIDERS: PCP Family Medicine; Visit Provider Registered Nurse Diabetes Educator | DX: N89.8 Other specified noninflammatory disorders of vagina (principal) | CPT/HCPCS: 87210; 87220 ==

== ENCOUNTER → 2023-03-22 10:52 | Outpatient (CLI) | payer OTHER, SELFPAY ==
[2023-03-22 12:19] LABS: Appearance Urine UA CLEAR; Bilirubin Urine UA NEGATIVE (NEGATIVE); Color Urine UA YELLOW; Glucose Urine UA NEGATIVE (Negative); Ketones Urine UA NEGATIVE (NEGATIVE); Leukocyte Esterase Urine UA NEGATIVE (NEGATIVE); Nitrite Urine UA NEGATIVE (Negative); Occult Blood Urine UA 2+ (Negative); Protein Urine UA NEGATIVE (Negative); Urobilinogen Urine UA 0.2 E.U./dL (0.2)
[2023-03-22 12:48] LABS: Bacteria Urine Few (2-10); Culture Indicated Urine Cult Not Indicated; RBC Urine 0-1/HPF (0-5/HPF); Squamous Epithelial Cell Urine 5-10 /HPF (0-5/HPF); WBC Urine 0-1/HPF (0-5/HPF)
== END ==
PROVIDERS: PCP Family Medicine; Referring Provider Registered Nurse Diabetes Educator; Visit Provider Registered Nurse Diabetes Educator
DX: R31.29 Other microscopic hematuria (principal)
CPT/HCPCS: 81001

== ENCOUNTER → 2023-04-20 14:03 | Outpatient (CLI) | payer OTHER, SELFPAY ==
[2023-04-20 16:54] LABS: Hemoglobin A1C% w Est Avg Glu 5.3 % (4.0-6.0)
[2023-04-22 16:08] LABS: Candida species Positive (Negative); Gardnerella vaginalis Negative (Negative); Trichomoas vaginalis Negative (Negative)
== END ==
PROVIDERS: PCP Family Medicine; Referring Provider Obstetrics & Gynecology; Visit Provider Obstetrics & Gynecology
DX: B37.9 Candidiasis, unspecified (principal); N89.8 Other specified noninflammatory disorders of vagina
CPT/HCPCS: 36415; 83036; 87480; 87510; 87660

== ENCOUNTER → 2023-06-23 10:03 | Outpatient (CLI) | payer OTHER, SELFPAY ==
--- NOTE | 2023-06-23 | DI.MG.S_ITS ---
BILATERAL DIGITAL SCREENING MAMMOGRAM 3D/2D WITH CAD WITH AUGMENTATION: 06/23/2023 CLINICAL: Routine screening. Comparison is made to exams dated: 06/17/2022 mammogram, 07/02/2021 mammogram, 05/30/2020 mammogram, and 05/07/2020 mammogram - [facility]. Both breasts are extremely dense, which lowers the sensitivity of mammography (category d />75% glandular tissue). Current study was also evaluated with a Computer Aided Detection (CAD) system. Bilateral breast implants are stable. There are benign diffuse calcifications in both breasts. No significant masses, calcifications, or other findings are seen in either breast. There has been no significant interval change. IMPRESSION: BENIGN There is no mammographic evidence of malignancy. A 1 year screening mammogram is recommended. Based on Tyrer-Cuzick model (a risk assessment model), the patient's lifetime risk is 58.5% and her 10 year risk is 14.4%. If a patient has an elevated risk, a more comprehensive evaluation should be considered and/or a referral to a genetic counselor. The [place] [employer], [employer], and NCCN Guidelines advise the consideration of Breast MRI as an adjunct to screening mammography in patients whose Lifetime risk to develop breast cancer is 20% or higher. This exam was interpreted at Station ID: [id number]. NOTE: For mammograms, a report in lay terms will be sent to the patient. Approximately 15% of breast malignancies will not be visualized mammographically. In the management of a palpable breast mass, a negative mammogram must not discourage biopsy of a clinically suspicious lesion. Electronically Signed By: Erlin weaver/rob:06/23/2023 11:10:07 letter sent: Normal Exam ACR BI-RADS Category 2: Benign Finding(s) 3342F
--- NOTE | 2023-06-23 10:04 | DI.MRI.S_ITS ---
BREAST MRI OF BOTH BREASTS: 06/23/2023 CLINICAL: Benign neoplasm of the Left breast. TECHNIQUE: The patient was placed prone in a dedicated breast imaging coil. Precontrast axial STIR and 3D FLASH without fat saturation sequences were obtained. Both before and after bolus injection of contrast, sequential 1-minute axial 3D FLASH with fat saturation sequences for 3 time points, with subtraction images and maximum intensity projections (MIP's) generated. Delayed sagittal FLASH images with fat saturation were also obtained. Computer-aided detection, including computer algorithm analysis of MRI image data for lesion detection and characterization, pharmacokinetic analysis, with further physician review for interpretation, was performed. COMPARISON: [facility], , US BREAST RT LIMITED, 06/17/2022, 11:04. [facility], US BREAST LT LIMITED, 06/17/2022, 10:58. [facility], MG, MM DIAGNOSTIC MAMMO IMPLANT BI, 06/17/2022, 10:32. [facility], , MM SCREENING MAMMO IMPLANT BI, 06/23/2023, 10:37. [facility], MR, MR BREAST BI WO/W CON, 05/11/2021, 12:49. Image quality: Diagnostic. There is moderate background parenchymal enhancement. There is extremely dense fibroglandular tissue in the bilateral breast. Right breast: Redemonstration of retroglandular silicone breast implant. No evidence for implant complication. There are apparent postsurgical changes of the right breast superior aspect within the anterior-middle depth with decreased size and conspicuity previously described dilated duct near the superior aspect of the breast. There is persistent but smaller and shorter segment of mildly dilated duct with T1 hyperintense material visualized on the precontrast images. No definite enhancing components or enhancing ductal wall. No intraluminal filling defects visualized. Otherwise, no new or suspicious masses identified in the right breast. No suspicious non-mass enhancement. No skin or nipple abnormalities. No axillary or internal mammary chain adenopathy. Left breast: Redemonstration of retroglandular silicone breast implant. No evidence for implant complication. The previously described oval circumscribed mass in the upper, outer quadrant of the left breast is not visualized on today's study. There are apparent postsurgical changes in the superior aspect of the left breast. Recommend correlation with surgical history in the interim since the previous MRI dated May 11, 2021. Otherwise, no new mass, non-mass enhancement, or other suspicious abnormalities identified in the left breast. No skin or nipple abnormality seen. No axillary or internal mammary chain adenopathy. Miscellaneous: Visualized portions of the upper abdomen and chest appear unremarkable. IMPRESSION: BENIGN 1. Apparent postsurgical changes of the upper aspect of the bilateral breast likely related to excision of biopsies of previously described left upper, outer quadrant breast mass as well as solitary dilated duct in the right breast. Recommend confirmation with past surgical history. No new/suspicious masses, non-mass enhancement, or adenopathy identified in either breast. 2. Bilateral retroglandular breast implants appear intact without evidence for complication. 3. No MRI evidence for malignancy in either breast. COMMENT: The imaging literature indicates that a negative contrast breast MRI examination has a high sensitivity and a moderate specificity for detecting and excluding invasive carcinomas to a detection threshold of 3-5 mm; nonetheless, appropriate clinical and mammographic follow-up are recommended. MRI is not sensitive for detecting DCIS (ductal carcinoma in situ) and may not detect large invasive neoplasms that show only minimal enhancement such as mucinous carcinoma. If there are suspicious calcifications or clinically worrisome palpable masses, then biopsy should still be considered. Invasive neoplasms can be hidden by co-existent and benign enhancement caused by mastitis, hormone therapy effects, radiation therapy, , and recent biopsy or surgery. False positive examinations can occur in a number of circumstances, including breasts that have recently been subject to invasive procedures and those that contain atypical ductal hyperplasia, hormonally stimulated glandular tissue, fat necrosis, or radial scars. This exam was interpreted at Station ID: [id number]. Electronically Signed By: Erlin Kulkarni M.D. aty/:06/23/2023 18:05:05 ACR BI-RADS Category 2: Benign Finding(s) 3342F
[2023-06-23 10:59] LABS: Add Manual Diff / Slide Review NO; Basophils Absolute Auto 0 /uL (0-100); Basophils Percent Auto 0.6 % (0-2); Eosinophils Absolute Auto 0 /uL (0-450); Eosinophils Percent Auto 0.8 % (2-4); Hematocrit 38.6 % (36-46); Hemoglobin 13.2 g/dL (12.0-16.0); Lymphocytes Absolute Auto 1500 /uL (1100-4500); Mean Corpuscular HGB Conc 34.1 % (30-36); Mean Corpuscular Hemoglobin 31.5 PG (26-34); Mean Corpuscular Volume 92.6 fL (80-100); Monocytes Absolute Auto 400 /uL (0-900); Monocytes Percent Auto 7.5 % (3-14); Neutrophils Absolute Auto 3000 /uL (1500-7000); Neutrophils Percent Auto 61.1 % (50-75); Platelet Count 177 X10^3/uL (150-400); Red Blood Cell Count 4.17 X10^6/uL (4.0-5.2); Red Cell Distribution Width 12.9 % (11.6-14.8)
[2023-06-23 11:46] LABS: Alanine Aminotransferase 15 IU/L (<35); Albumin 4.4 g/dL (3.5-5.0); Albumin Globulin Ratio 1.4 (1.0-2.8); Alkaline Phosphatase 60 U/L (38-126); Aspartate Aminotransferase 25 IU/L (14-36); BUN Creatinine Ratio 21.2 (6-22); Bilirubin Total 0.8 mg/dL (0.2-1.3); Blood Urea Nitrogen 14 mg/dL (7-17); Calcium 9.4 mg/dL (8.4-10.2); Carbon Dioxide 23 mmol/L (22-32); Chloride 108 mmol/L (98-107); Cholesterol 171 mg/dL (140-199); Estimated Glomerular Filt Rate > 60 mL/min (>60); Globulin 3.1 g/dL (1.7-4.1); Glucose 81 mg/dL (70-100); HDL Cholesterol 72 mg/dL (40-60); HEMOLYSIS < 15 (0-50); LDL Cholesterol Calculated 90 mg/dL (<100); Potassium 4.2 mmol/L (3.4-5.1); Sodium 138 mmol/L (137-145); Total Protein 7.5 g/dL (6.3-8.2); Triglycerides 46 mg/dL (35-150)
[2023-06-23 12:26] LABS: Free T3, Triiodothyronine Free 4.27 pg/mL (2.77-5.27); Free T4, Direct Thyroxine 1.43 ng/dL (0.78-2.19)
[2023-06-23 12:40] LABS: TSH w/ Reflex to FT4 2.35 uIU/mL (0.47-4.68)
[2023-06-24 05:06] LABS: Apolipoprotein B 68 mg/dL (<90)
== END ==
PROVIDERS: PCP Family Medicine; Referring Provider Family Medicine; Visit Provider Family Medicine
DX: Z12.31 Encounter for screening mammogram for malignant neoplasm of breast (principal); R92.343 Mammographic extreme density, bilateral breasts; D24.2 Benign neoplasm of left breast; E03.9 Hypothyroidism, unspecified; R73.9 Hyperglycemia, unspecified; Z98.82 Breast implant status
CPT/HCPCS: 36415; 77049; 77063; 77067; 80053; 80061; 82172; 84439; 84443; 84481; 85025; A9579

== ENCOUNTER → 2023-07-14 14:04 | Outpatient (CLI) | payer OTHER, SELFPAY ==
[2023-07-16 13:09] LABS: Candida species Positive (Negative); Gardnerella vaginalis Negative (Negative); Trichomoas vaginalis Negative (Negative)
== END ==
PROVIDERS: PCP Family Medicine; Visit Provider Physician Assistant Medical
DX: N89.8 Other specified noninflammatory disorders of vagina (principal)
CPT/HCPCS: 87480; 87510; 87660

== ENCOUNTER → 2023-08-29 12:01 | Outpatient (CLI) | payer OTHER, SELFPAY ==
--- NOTE | 2023-08-29 12:02 | DI.RAD.S_ITS ---
PROCEDURE: XR FOOT LT MIN 3V INDICATIONS: rolled ankle/lat malleolar/prox 4th metatarsal tender TECHNIQUE: 3 views of the foot were acquired. COMPARISON: None. FINDINGS: Bones: No fractures or dislocations. No suspicious bony lesions. Soft tissues: No tibiotalar joint effusion. Achilles tendon appears normal. IMPRESSION: No acute fracture. No osseous lesion. If symptoms and/or clinical suspicion for pathology persist, further assessment with repeat, or advanced imaging (e.g., CT, MRI, or bone scan) may be helpful for further assessment. Dictated by: José Miguel Nixon M.D. on 08/29/2023 at 12:33 Approved by: José Miguel Nixon M.D. on 08/29/2023 at 12:34
== END ==
PROVIDERS: PCP Family Medicine; Referring Provider Student in an Organized Health Care Education/Training Program; Visit Provider Student in an Organized Health Care Education/Training Program
DX: M79.672 Pain in left foot (principal); M25.572 Pain in left ankle and joints of left foot
CPT/HCPCS: 73630

== ENCOUNTER → 2024-07-20 11:28 | Outpatient (CLI) | payer OTHER, SELFPAY ==
--- NOTE | 2024-07-20 11:31 | DI.MG.S_ITS ---
MM diagnostic mammo implant BI, US breast RT limited: 07/20/2024 BI-RADS: 2 CLINICAL: 44-year old female for bilateral diagnostic mammogram and right diagnostic breast ultrasound. The patient reports right breast pain. Tyrer-Cuzick lifetime risk of 16.2%. No personal or first-degree family history of breast cancer. The patient reports pain (3 months) in the right breast. The patient has bilateral implants. The patient had a prior right breast biopsy. PRIOR EXAMS 06/23/2023, 06/17/2022, 12/24/2021, 07/15/2021, 07/02/2021, 05/11/2021, 01/01/2021, 05/30/2020, 05/07/2020. MAMMOGRAPHY TECHNIQUE: 2D and 3D (tomosynthesis) digital mammographic views obtained, with additional images as needed for full coverage. Current study was also evaluated with a Computer Aided Detection (CAD) system. ULTRASOUND TECHNIQUE: TARGETED Right Breast Ultrasound: Real-time ultrasound exam was performed focused to area of clinical and/or imaging concern. DENSITY D. The breasts are extremely dense, which lowers the sensitivity of mammography. IMPLANTS Breast implants present. MAMMOGRAPHY FINDINGS Right (finding-1): Upper Outer Quadrant, Anterior depth: The patient reports pain at her prior surgical site which also radiates to the axilla. There is no suspicious mammographic finding to account for concern by the patient of pain/tenderness. No suspicious mass, asymmetry, microcalcification, or other abnormality seen. Bilateral: Benign-appearing post-surgical changes and calcifications noted. There are no suspicious masses, calcifications, or other findings in the breast. There are bilateral prepectoral silicone implants. ULTRASOUND FINDINGS Right (finding-1): Upper Outer at 10:00, 4 cm from nipple: There is no suspicious sonographic finding to account for concern by the patient of pain/tenderness. A right breast implant is noted with radial folds. IMPRESSION: * No evidence of malignancy with benign findings. RECOMMENDATIONS Right * Clinical follow-up is recommended, and further management of palpable abnormalities or other focal signs or symptoms should be based on the results of clinical evaluation. If palpable abnormality or other concerning symptom persists or progresses, further clinical evaluation should be considered. Bilateral * Annual screening mammography in one year. COMMENTS: Findings and recommendations were conveyed to the patient during today's evaluation. OVERALL ASSESSMENT CATEGORY BI-RADS-2: Benign. The [employer] [place] recommends annual screening mammography beginning at age 40 for women with average risk of breast cancer. ELECTRONICALLY SIGNED: Carissa Hernandez M.D. on 07/20/2024 at 12:55:26 PM PT Interpreting Station ID: [id number]
== END ==
PROVIDERS: PCP Family Medicine; Referring Provider Family Medicine; Visit Provider Family Medicine
DX: R92.2 Inconclusive mammogram (principal); N64.4 Mastodynia; T85.9XXA Unspecified complication of internal prosthetic device, implant and graft, initial encounter; R92.343 Mammographic extreme density, bilateral breasts; Z98.82 Breast implant status
CPT/HCPCS: 76642; 77066; G0279

== ENCOUNTER → 2024-10-09 08:39 | Outpatient (CLI) | payer OTHER, SELFPAY ==
[2024-10-09 10:00] LABS: Add Manual Diff / Slide Review NO; Basophils Absolute Auto 0 /uL (0-100); Basophils Percent Auto 0.4 % (0-2); Eosinophils Absolute Auto 100 /uL (0-450); Eosinophils Percent Auto 1.4 % (2-4); Hematocrit 39.1 % (36-46); Hemoglobin 13.5 g/dL (12.0-16.0); Lymphocytes Absolute Auto 1800 /uL (1100-4500); Mean Corpuscular HGB Conc 34.5 % (30-36); Mean Corpuscular Hemoglobin 31.5 PG (26-34); Mean Corpuscular Volume 91.2 fL (80-100); Monocytes Absolute Auto 400 /uL (0-900); Monocytes Percent Auto 8.4 % (3-14); Neutrophils Absolute Auto 2700 /uL (1500-7000); Neutrophils Percent Auto 53.8 % (50-75); Platelet Count 190 X10^3/uL (150-400); Red Blood Cell Count 4.28 X10^6/uL (4.0-5.2); Red Cell Distribution Width 12.9 % (11.6-14.8)
[2024-10-09 10:22] LABS: Alanine Aminotransferase 16 IU/L (<35); Albumin 4.5 g/dL (3.5-5.0); Albumin Globulin Ratio 1.7 (1.0-2.8); Alkaline Phosphatase 58 U/L (38-126); Aspartate Aminotransferase 23 IU/L (14-36); BUN Creatinine Ratio 21.3 (6-22); Bilirubin Total 1.1 mg/dL (0.2-1.3); Blood Urea Nitrogen 16 mg/dL (7-17); Calcium 9.3 mg/dL (8.4-10.2); Carbon Dioxide 23 mmol/L (22-32); Chloride 104 mmol/L (98-107); Cholesterol 177 mg/dL (140-199); Estimated Glomerular Filt Rate > 60 mL/min (>60); Globulin 2.7 g/dL (1.7-4.1); Glucose 90 mg/dL (70-99); HDL Cholesterol 63 mg/dL (40-60); HEMOLYSIS < 15 (0-50); LDL Cholesterol Calculated 102 mg/dL (<100); Potassium 4.4 mmol/L (3.4-5.1); Sodium 137 mmol/L (137-145); Total Protein 7.2 g/dL (6.3-8.2); Triglycerides 58 mg/dL (35-150)
[2024-10-09 10:39] LABS: Free T3, Triiodothyronine Free 3.75 pg/mL (2.77-5.27); Free T4, Direct Thyroxine 1.43 ng/dL (0.78-2.19)
[2024-10-09 10:47] LABS: Thyroid Stimulating Hormone 3.07 uIU/mL (0.47-4.68)
[2024-10-09 11:12] LABS: HIV 1 & 2 Ab/Ag 4th Gen Combo NEGATIVE (NEGATIVE); Hep C Virus Ab w/Reflex Quant NEGATIVE s/c (NEGATIVE)
== END ==
PROVIDERS: PCP Family Medicine; Referring Provider Family Medicine; Visit Provider Family Medicine
DX: Z00.00 Encounter for general adult medical examination without abnormal findings (principal); R73.9 Hyperglycemia, unspecified; E03.9 Hypothyroidism, unspecified; Z11.59 Encounter for screening for other viral diseases; Z91.89 Other specified personal risk factors, not elsewhere classified; Z11.4 Encounter for screening for human immunodeficiency virus [HIV]
CPT/HCPCS: 36415; 80053; 80061; 84439; 84443; 84481; 85025; 86803; 87389

== ENCOUNTER → 2025-02-05 15:11 | Outpatient (CLI) | payer OTHER, SELFPAY | PROVIDERS: PCP Family Medicine; Visit Provider Obstetrics & Gynecology | DX: N89.8 Other specified noninflammatory disorders of vagina (principal) | CPT/HCPCS: 81514 ==

== ENCOUNTER → 2025-03-28 10:59 | Outpatient (CLI) | payer OTHER, SELFPAY ==
[2025-03-28 12:26] LABS: Follicle Stimulating Hormone 10.1 mIU/mL
== END ==
PROVIDERS: PCP Family Medicine; Referring Provider Family Medicine; Visit Provider Family Medicine
DX: E03.9 Hypothyroidism, unspecified (principal); N95.1 Menopausal and female climacteric states; N92.0 Excessive and frequent menstruation with regular cycle
CPT/HCPCS: 36415; 82670; 82677; 82679; 83001; 83002; 84144; 84999